=== PATIENT | male | born 1980 | race African-American/Black ===

== ENCOUNTER 2017-02-12 04:28 | Emergency (ER) | payer OTHER ==
[~2017-02-12] VITALS: Ht 170.2 cm; Wt 63.5 kg
[~2017-02-12 04:28] MED LIST: CYCLOBENZAPRINE5 MG PO; DOXYCYCLINE 10100 MG PO; FLEXERIL PO; FLOMAX0.4 MG PO; GARAMYCIN5 M1 OP; IBUPROFEN 600600 M1 PO; IBUPROFEN 800800 M1 PO; MUPIROCIN22 GM TOP; NAPROSYN500 MG PO; NOHOMEMEDICATIONS; NORCO 5-325 TA1 EACH PO
[2017-02-12 05:06] LABS: ABSOLUTE NEUTROPHILS 7.1 thou/uL (1.4-8.2); BASOPHILS 0.7 % (0.0-2.0); EOSINOPHILS 1.9 % (0.0-3.0); HEMATOCRIT 42.8 % (42.0-52.0); HEMOGLOBIN 14.3 gm/dL (14.0-18.0); LYMPHOCYTES 19.7 % (24.0-44.0); MCH 30.1 pg (26.0-34.0); MCHC 33.5 g/dL (28.0-37.0); PLATELET COUNT 292 thou/uL (150-400); POLYS 69.7 % (36.0-66.0); RBC 4.75 mil/uL (4.50-6.00); RDW 14.6 % (10.5-14.5); WBC 10.1 thou/uL (4.0-11.0)
[2017-02-12 05:13] LABS: MANUAL DIFF NO
[2017-02-12 05:21] LABS: ALBUMIN 3.8 g/dL (3.4-5.0); CALCIUM 8.9 mg/dL (8.5-10.1); CREATININE 0.9 mg/dL (0.6-1.3); POTASSIUM 3.7 mmol/L (3.5-5.1); TOTAL BILIRUBIN 0.6 mg/dL (<0.1-1.0); TOTAL PROTEIN 7.8 g/dL (6.4-8.2)
[2017-02-12] MEDS ORDERED: ZOFRAN ODT4 MG PO (06:11)
[2017-02-12] MEDS ORDERED: BENTYL 20 MG TA20 M1 PO (06:11)
[2017-02-12] MEDS ORDERED: LOPERAMIDE 2 MG2 M1 PO (06:11)
[2017-02-12 06:16] LABS: URINE BILIRUBIN NEGATIVE (Negative); URINE BLOOD NEGATIVE (Negative); URINE COLOR YELLOW; URINE GLUCOSE-RANDOM* NEGATIVE (Negative); URINE KETONES TRACE (Negative); URINE LEUKOCYTES-REFLEX NEGATIVE (Negative); URINE PROTEIN (DIPSTICK) TRACE (Negative); URINE SPECIFIC GRAVITY 1.025 (1.003-1.035); URINE UROBILINOGEN 0.2 E.U./dl (0.2-1.0)
== END 2017-02-12 06:21 | disposition home or self-care (01) ==
LOC: ER 04:28
PROVIDERS: Emergency Medicine
DX: K52.89 Other specified noninfective gastroenteritis and colitis (principal); G89.29 Other chronic pain; Z88.6 Allergy status to analgesic agent; F17.210 Nicotine dependence, cigarettes, uncomplicated

== ENCOUNTER 2018-12-06 02:55 | Emergency (ER) | payer OTHER ==
[~2018-12-06] VITALS: Ht 162.6 cm; Wt 65.8 kg
[~2018-12-06 02:55] MED LIST changes: +BENTYL 20 MG TA20 M1 PO; +LOPERAMIDE 2 MG2 M1 PO; +ZOFRAN ODT4 MG PO
[2018-12-06 03:11] LABS: URINE BILIRUBIN NEGATIVE (Negative); URINE BLOOD NEGATIVE (Negative); URINE CLARITY CLEAR; URINE COLOR YELLOW; URINE GLUCOSE-RANDOM* NEGATIVE (Negative); URINE KETONES NEGATIVE (Negative); URINE PROTEIN (DIPSTICK) NEGATIVE (Negative); URINE SPECIFIC GRAVITY >= 1.030 (1.005-1.035)
[2018-12-06 03:12] LABS: URINE LEUKOCYTES-REFLEX NEGATIVE (Negative); URINE NITRITE-REFLEX NEGATIVE (Negative); URINE UROBILINOGEN 0.2 E.U./dl (0.2-1.0)
[2018-12-06 03:17] LABS: BASOPHILS 1.2 % (0.0-2.0); EOSINOPHILS 2.6 % (0.0-3.0); HEMATOCRIT 42.2 % (42.0-52.0); HEMOGLOBIN 14.1 gm/dL (14.0-18.0); LYMPHOCYTES 31.9 % (24.0-44.0); MCH 28.6 pg (26.0-34.0); MCHC 33.4 g/dL (28.0-37.0); MCV 85.8 fL (80.0-100.0); MONOCYTES 11.1 % (1.0-8.0); PLATELET COUNT 260 thou/uL (150-400); POLYS 53.2 % (36.0-66.0); RBC 4.92 mil/uL (4.50-6.00); RDW 14.9 % (10.5-14.5); WBC 7.4 thou/uL (4.0-11.0)
[2018-12-06 03:27] LABS: CALCIUM 8.6 mg/dL (8.5-10.1); CREATININE 0.9 mg/dL (0.7-1.3); POTASSIUM 4.2 mmol/L (3.5-5.1)
[2018-12-06] MEDS ORDERED: TORADOL 10 MG T10 MG PO (03:45)
[2018-12-06 04:03] VITALS: BP 134/87
== END 2018-12-06 04:08 | disposition home or self-care (01) ==
LOC: ER 02:55
PROVIDERS: Student in an Organized Health Care Education/Training Program
DX: N20.0 Calculus of kidney (principal); F17.210 Nicotine dependence, cigarettes, uncomplicated; G89.29 Other chronic pain; M54.9 Dorsalgia, unspecified; Z88.8 Allergy status to other drugs, medicaments and biological substances

== ENCOUNTER 2018-12-09 02:44 | Emergency (ER) | payer OTHER ==
[~2018-12-09] VITALS: Ht 162.6 cm; Wt 69.0 kg
[~2018-12-09 02:44] MED LIST changes: +TORADOL 10 MG T10 MG PO
[2018-12-09 02:52] VITALS: BP 142/87
[2018-12-09] MEDS ORDERED: IBUPROFEN 400400 M2 PO (03:10)
[2018-12-09] MEDS ORDERED: KEFLEX500 M1 PO (03:10)
== END 2018-12-09 03:21 | disposition home or self-care (01) ==
LOC: ER 02:44
DX: H60.01 Abscess of right external ear (principal); G89.29 Other chronic pain; M54.9 Dorsalgia, unspecified; F17.210 Nicotine dependence, cigarettes, uncomplicated; Z88.8 Allergy status to other drugs, medicaments and biological substances; Z87.442 Personal history of urinary calculi

== ENCOUNTER 2021-02-07 06:13 | Emergency (ER) | payer OTHER ==
[~2021-02-07] VITALS: Ht 157.5 cm; Wt 81.7 kg
[~2021-02-07 06:13] MED LIST changes: +IBUPROFEN 400400 M2 PO; +KEFLEX500 M1 PO
[2021-02-07] MEDS ORDERED: NORCO5 PO ×2 (07:47→07:56)
[2021-02-07] MEDS ORDERED: NEURONTIN100 MG PO ×2 (07:47→07:56)
[2021-02-07 07:58] VITALS: BP 123/69
== END 2021-02-07 08:12 | disposition home or self-care (01) ==
LOC: ER 06:13
DX: M25.561 Pain in right knee (principal); G89.29 Other chronic pain; F17.210 Nicotine dependence, cigarettes, uncomplicated; Z88.8 Allergy status to other drugs, medicaments and biological substances; Z87.442 Personal history of urinary calculi; W01.0XXA Fall on same level from slipping, tripping and stumbling without subsequent striking against object, initial encounter; Y93.89 Activity, other specified; Y92.89 Other specified places as the place of occurrence of the external cause; Y99.9 Unspecified external cause status

== ENCOUNTER 2021-03-08 06:53 | Emergency (ER) | payer OTHER ==
[~2021-03-08] VITALS: Ht 157.5 cm; Wt 59.0 kg
[~2021-03-08 06:53] MED LIST changes: +NEURONTIN100 MG PO; +NORCO5 PO
[2021-03-08 06:55] VITALS: BP 132/84
[2021-03-08] MEDS ORDERED: IBUPROFEN 800800 MG PO (07:11)
[2021-03-08] MEDS ORDERED: SALONPAS1 EACH TRANSDERM (07:11)
== END 2021-03-08 07:25 | disposition home or self-care (01) ==
LOC: ER 06:53
DX: M54.5 Low back pain (principal); G89.29 Other chronic pain; F17.210 Nicotine dependence, cigarettes, uncomplicated; Z88.8 Allergy status to other drugs, medicaments and biological substances; Z87.442 Personal history of urinary calculi; V49.88XA Car occupant (driver) (passenger) injured in other specified transport accidents, initial encounter; Y93.89 Activity, other specified; Y92.413 State road as the place of occurrence of the external cause; Y99.9 Unspecified external cause status

== ENCOUNTER → 2021-03-12 | Emergency (ER) | payer OTHER ==
[~2021-03-12] MED LIST changes: +IBUPROFEN 800800 MG PO; +NORFLEX100 MG PO; +SALONPAS1 EACH TRANSDERM
== END ==
LOC: ER 14:54
DX: M54.5 Low back pain (principal); Z53.21 Procedure and treatment not carried out due to patient leaving prior to being seen by health care provider

== ENCOUNTER 2021-03-13 02:22 | Emergency (ER) | payer OTHER ==
[~2021-03-13] VITALS: Ht 165.1 cm; Wt 70.3 kg
[~2021-03-13 02:22] MED LIST changes: -NORFLEX100 MG PO
[2021-03-13] MEDS ORDERED: NAPROSYN500 MG PO (03:49)
[2021-03-13] MEDS ORDERED: NORFLEX100 MG PO (03:49)
[2021-03-13 03:58] VITALS: BP 103/59
== END 2021-03-13 04:00 | disposition home or self-care (01) ==
LOC: ER 02:22
DX: M54.5 Low back pain (principal); G89.29 Other chronic pain; F17.210 Nicotine dependence, cigarettes, uncomplicated; Z88.8 Allergy status to other drugs, medicaments and biological substances; Z87.442 Personal history of urinary calculi

== ENCOUNTER 2021-12-09 03:49 | Emergency (ER) | payer OTHER ==
[~2021-12-09] VITALS: Ht 162.6 cm; Wt 63.5 kg
[~2021-12-09 03:49] MED LIST changes: +NORFLEX100 MG PO
[2021-12-09] MEDS ORDERED: BACTRIM DS TAB1 EACH PO (04:37)
[2021-12-09 04:48] VITALS: BP 164/89
[2021-12-09] MEDS ORDERED: DOXYCYCLINE 10100 MG PO (18:28)
== END 2021-12-09 04:48 | disposition home or self-care (01) ==
LOC: ER 03:49
DX: L03.115 Cellulitis of right lower limb (principal); F17.210 Nicotine dependence, cigarettes, uncomplicated; Z88.8 Allergy status to other drugs, medicaments and biological substances

== ENCOUNTER 2021-12-09 17:43 | Emergency (ER) | payer OTHER ==
[~2021-12-09] VITALS: Ht 162.6 cm; Wt 63.5 kg
[~2021-12-09 17:43] MED LIST changes: +BACTRIM DS TAB1 EACH PO
[2021-12-09 17:54] VITALS: BP 150/100
[2021-12-09] MEDS ORDERED: DOXYCYCLINE 10100 MG PO (18:28)
== END 2021-12-09 18:35 | disposition home or self-care (01) ==
LOC: ER 17:43
DX: T50.905A Adverse effect of unspecified drugs, medicaments and biological substances, initial encounter (principal); L03.115 Cellulitis of right lower limb; F17.210 Nicotine dependence, cigarettes, uncomplicated; Z88.8 Allergy status to other drugs, medicaments and biological substances; Y92.89 Other specified places as the place of occurrence of the external cause

== ENCOUNTER 2021-12-12 16:15 | Emergency (ER) | payer OTHER ==
[~2021-12-12] VITALS: Ht 162.6 cm; Wt 63.5 kg
[2021-12-12 16:42] VITALS: BP 145/73
[2021-12-12] MEDS ORDERED: IBUPROFEN 600600 M1 PO (17:09)
== END 2021-12-12 17:35 | disposition home or self-care (01) ==
LOC: ER 16:15
DX: M79.604 Pain in right leg (principal); Z48.00 Encounter for change or removal of nonsurgical wound dressing; F17.210 Nicotine dependence, cigarettes, uncomplicated; Z87.442 Personal history of urinary calculi; Z79.891 Long term (current) use of opiate analgesic; Z79.899 Other long term (current) drug therapy; Z88.8 Allergy status to other drugs, medicaments and biological substances